=== PATIENT | female | born 1985 | race Caucasian/White ===

== ENCOUNTER 2017-02-03 09:23 | Emergency (ER) | payer SELFPAY ==
[~2017-02-03 09:23] MED LIST: AMOXICILLIN500 M1 PO; BYSTOLIC5 M1 PO; CIPRO500 M1 PO; CODEINE; CYCLOBENZAPRINE5 M1 PO; FLEXERIL10 MG PO; FLINTSTONE1 TAB.CHEW; HYCET 7.5 MG-3473 M2 PO; HYDROCODON-ACE1 EA16 PO; LORTAB 10 MG-3473 M1 PO; NAPROSYN500 MG PO; NORCO 5/325 TAB1 TAB PO; PRENATAL COMPL1 EACH PO; PRENATAL FORMU1 EAC2 PO; PROMETHAZINE; PROMETHAZINE HC25 M3 PO; SCOT-TUSSI10 MG/5 ML PO; TYLENOL325 M2 PO; VISTARIL25 M1 PO; ZOFRAN ODT4 MG PO
[2017-02-03] MEDS ORDERED: THERAFLU EXP245.5 ML PO (09:35)
[2017-02-03] MEDS ORDERED: TYLENOL EXTRA500 M1 PO (09:35)
[2017-02-03] MEDS ORDERED: NORCO 5-325 TA1 EACH PO (09:50)
[2017-05-21] MEDS ORDERED: VISTARIL50 M1 PO (00:30)
[2017-05-21] MEDS ORDERED: IBUPROFEN600 M1 PO (00:32)
[2017-06-10] MEDS ORDERED: NO HOME MEDICATION XX (14:15)
[2017-06-10] MEDS ORDERED: CATAPRES0.1 M1 PO (15:51)
[2017-06-11] MEDS ORDERED: CATAPRES0.1 M1 PO (23:07)
== END 2017-02-03 10:06 ==
LOC: EDMED 09:23
PROC: 2W38X1Z Immobilization of Right Upper Extremity using Splint (ICD-10-PCS; principal; 2017-02-03)
DX: M77.9 Enthesopathy, unspecified (principal); Z88.8 Allergy status to other drugs, medicaments and biological substances; Z87.891 Personal history of nicotine dependence

== ENCOUNTER 2017-03-13 07:48 | Emergency (ER) | payer SELFPAY ==
[~2017-03-13 07:48] MED LIST changes: +NORCO 5-325 TA1 EACH PO; +THERAFLU EXP245.5 ML PO; +TYLENOL EXTRA500 M1 PO
[2017-03-13] MEDS ORDERED: NO HOME MEDICATION XX (07:54)
[2017-03-13] MEDS ORDERED: NORCO 5-325 TA1 EACH PO (08:13)
[2017-05-21] MEDS ORDERED: VISTARIL50 M1 PO (00:30)
[2017-05-21] MEDS ORDERED: IBUPROFEN600 M1 PO (00:32)
[2017-06-10] MEDS ORDERED: NO HOME MEDICATION XX (14:15)
[2017-06-10] MEDS ORDERED: CATAPRES0.1 M1 PO (15:51)
[2017-06-11] MEDS ORDERED: CATAPRES0.1 M1 PO (23:07)
== END 2017-03-13 08:22 ==
LOC: EDMED 07:48
DX: M77.9 Enthesopathy, unspecified (principal); Z98.890 Other specified postprocedural states; F17.210 Nicotine dependence, cigarettes, uncomplicated

== ENCOUNTER 2017-04-15 10:23 | Emergency (ER) | payer SELFPAY ==
[~2017-04-15 10:23] MED LIST changes: +NO HOME MEDICATION XX
[2017-05-21] MEDS ORDERED: VISTARIL50 M1 PO (00:30)
[2017-05-21] MEDS ORDERED: IBUPROFEN600 M1 PO (00:32)
[2017-06-10] MEDS ORDERED: NO HOME MEDICATION XX (14:15)
[2017-06-10] MEDS ORDERED: CATAPRES0.1 M1 PO (15:51)
[2017-06-11] MEDS ORDERED: CATAPRES0.1 M1 PO (23:07)
== END 2017-04-15 11:47 ==
LOC: EDMED 10:23
DX: S56.911A Strain of unspecified muscles, fascia and tendons at forearm level, right arm, initial encounter (principal); M25.511 Pain in right shoulder; F17.200 Nicotine dependence, unspecified, uncomplicated; Z88.8 Allergy status to other drugs, medicaments and biological substances; X58.XXXA Exposure to other specified factors, initial encounter; Y92.009 Unspecified place in unspecified non-institutional (private) residence as the place of occurrence of the external cause
CPT/HCPCS: J1885

== ENCOUNTER 2017-07-07 22:21 | Emergency (ER) | payer SELFPAY ==
[~2017-07-07] VITALS: Ht 160 cm; Wt 46.3 kg
[~2017-07-07 22:21] MED LIST changes: +CATAPRES0.1 M1 PO; +IBUPROFEN600 M1 PO; +VISTARIL50 M1 PO
[2017-07-08 00:57] LABS: BASO % 0.4 % (0-2); EOS % 3.7 % (0-7); EOSINOPHIL ABSOLUTE COUNT 0.3 tho/cmm (0.0-0.7); HCT-HEMATOCRIT 36.1 % (34.0-49.0); HGB-HEMOGLOBIN 12.4 gm/dl (12.0-15.5); IMMATURE GRANULOCYTES ABSOLUTE 0.01 tho/cmm (0-0.03); IMMATURE GRANULOCYTES PERCENT 0.1 % (0-0.3); LYMPH ABSOLUTE COUNT 3.5 tho/cmm (0.8-4.5); MCH (MEAN CORPUSCULAR HGB) 30.9 pg (28.0-32.0); MCHC MEAN CORPUSCULAR HGB CONC 34.3 % (32.0-36.0); MEAN PLATELET VOLUME 10.9 cmc (9.4-12.4); MONO % 4.6 % (0-12); MONOCYTE ABSOLUTE COUNT 0.3 tho/cmm (0.0-1.2); NEUTROPHILS % 42.2 % (40-80); PLATELET COUNT 164 tho/cmm (150-450); RED BLOOD COUNT 4.01 mil/cmm (4.00-5.20); RED CELL DISTRIBUTION WIDTH 12.7 % (12.4-16.4); WHITE BLOOD COUNT 7.1 tho/cmm (4.0-10.0)
[2017-07-08 01:07] LABS: ALB/GLOB RATIO 1.3 (0.8-2.0); ALBUMIN 3.8 g/dl (3.5-5.0); ALKALINE PHOSPHATASE 50 U/L (33-138); ALT/SGPT 17 U/L (12-78); ANION GAP 8 mmol/L (0-20); AST/SGOT 18 U/L (10-40); BILIRUBIN,TOTAL 0.2 mg/dl (0-1.5); BLOOD UREA NITROGEN 8 mg/dl (6-24); CALCIUM 8.4 mg/dl (8.5-10.5); CARBON DIOXIDE-VENOUS 25 mmol/L (22-32); CHLORIDE 107 mmol/l (96-110); CREATININE 0.73 mg/dl (0.50-1.10); GLUCOSE 113 mg/dL (70-110); POTASSIUM 3.4 mmol/L (3.7-5.1); SODIUM 137 mmol/L (135-145); eGFR VALUE FOR BLACK >90 mL/Min
== END 2017-07-08 02:00 ==
LOC: EDMED 22:21
PROVIDERS: Physician Assistant
DX: R07.81 Pleurodynia (principal); F17.210 Nicotine dependence, cigarettes, uncomplicated
CPT/HCPCS: J1885